=== PATIENT | female | born 1960 | race Caucasian/White ===

== ENCOUNTER 2020-11-08 11:11 | Emergency (ER) | payer OTHER ==
[~2020-11-08] VITALS: Ht 165.1 cm; Wt 71.7 kg
[2020-11-08] MEDS ORDERED: CYCLOBENZAPRINE10 MG PO (12:39)
[2020-11-08] MEDS ORDERED: MEDROL 4MG DOSEP4 MG PO (12:39)
== END 2020-11-08 13:02 | disposition home or self-care (01) ==
LOC: FER 11:11
DX: S39.012A Strain of muscle, fascia and tendon of lower back, initial encounter (principal); I10 Essential (primary) hypertension; E11.9 Type 2 diabetes mellitus without complications; X50.1XXA Overexertion from prolonged static or awkward postures, initial encounter; Y93.E9 Activity, other interior property and clothing maintenance
CPT/HCPCS: 99283; J1100